=== PATIENT | female | born 1980 | race African-American/Black ===

== ENCOUNTER 2016-09-10 16:00 | Emergency (ER) | payer MEDICAID, OTHER ==
[~2016-09-10] VITALS: Ht 160 cm; Wt 72.6 kg
[~2016-09-10 16:00] MED LIST: INSU100I13 SQ; INSU100V31 SQ; LISI10TA2 PO; METO10TA81 PO; PANT20TA2 PO
[2016-09-10] MEDS ORDERED: IV NORMAL SALINE 1000ML BAG 1,000 ML IV SCH (17:49)
[2016-09-10] MEDS ORDERED: ONDANSETRON PF 4 MG/2 ML VIAL. IV ONE (18:00)
--- NOTE | 2016-09-10 18:02 | PHYS DOC ---
Past Medical History Past Medical History: Asthma, Diabetes-Type II, Hypertension, Other Additional Past Medical Histor: gastroperesis Past Surgical History: Cholecystectomy, , Tubal ligation Additional Past Surgical Histo: R eye, R foot Alcohol Use: None Drug Use: None Adult General Chief Complaint Chief Complaint: NAUSEA/VOMITING/DIARRHA HPI HPI Patient is a 36 year old female who presents with nausea, vomiting, and abdominal pain. Patient states that she has history of diabetic gastroparesis. Patient said symptoms for the past 2 weeks but has had worsening symptoms over the past few days. Patient states that she is from [place], [place] and is currently visiting her father in [place]. Patient states that she was seen in an emergency department and [place] 2 days ago and treated and released. Patient states that her symptoms started getting worse and she has not been able to tolerate her oral Reglan and Protonix currently. Patient denies any fevers. Patient denies any atypical symptoms from previous exacerbations. Patient's pain is in her upper abdomen and does not radiate. Review of Systems Review of Systems Constitutional: Denies fever or chills [] Eyes: Denies change in visual acuity, redness, or eye pain [] HENT: Denies nasal congestion or sore throat [] Respiratory: Denies cough or shortness of breath [] Cardiovascular: Denies chest pain or edema [] GI: Abdominal pain, nausea, vomiting [] : Denies dysuria or hematuria [] Musculoskeletal: Denies back pain or joint pain [] Integument: Denies rash or skin lesions [] Neurologic: Denies headache, focal weakness or sensory changes [] Current Medications Current Medications Current Medications Medications (Trade) Dose Ordered Sig/Zhao Start Time Stop Time Status Last Admin Dose Admin Hydromorphone HCl 1 mg 1 mg PRN Q15MIN PRN 09/10/16 18:00 09/10/16 20:56 DC 09/10/16 19:49 1 MG Ondansetron HCl (Zofran) 4 mg 1X ONCE 09/10/16 18:00 09/10/16 18:01 DC 09/10/16 18:20 4 MG Potassium Chloride (Klor-Con) 40 meq 1X ONCE 09/10/16 19:30 09/10/16 19:31 DC 09/10/16 19:50 40 MEQ Sodium Chloride (Iv Sodium Chloride 0.9% 1000ml Bag) 1,000 ml @ 1,000 mls/hr Q1H 09/10/16 17:49 09/10/16 18:48 DC 09/10/16 17:49 1,000 MLS/HR Allergies Allergies Allergies Coded Allergies Type Severity Reaction Last Updated Verified No Known Drug Allergies 06/14/15 No Physical Exam Physical Exam Constitutional: Alert, afebrile, appears in mild discomfort. [] HENT: Normocephalic, atraumatic, bilateral external ears normal, oropharynx moist, no oral exudates, nose normal. [] Eyes: PERRLA, EOMI, conjunctiva normal, no discharge. [] Neck: Normal range of motion, no tenderness, supple, no stridor. [] Cardiovascular:Heart rate regular rhythm, no murmur [] Lungs & Thorax: Bilateral breath sounds clear to auscultation [] Abdomen: Bowel sounds normal, soft, epigastric tenderness to palpation, mild guarding, no rebound tenderness, no masses, no pulsatile masses. [] Skin: Warm, dry, no erythema, no rash. [] Back: No tenderness, no CVA tenderness. [] Extremities: No tenderness, no cyanosis, no clubbing, ROM intact, no edema. [] Neurologic: Alert and oriented X 3, normal motor function, normal sensory function, no focal deficits noted. [] Current Patient Data Vital Signs Vital Signs Date Time Temp Pulse Resp B/P Pulse Ox O2 Delivery O2 Flow Rate FiO2 09/10/16 20:34 94 142/86 94 Room Air 09/10/16 19:49 20 09/10/16 17:30 98.2 98.2 Lab Values Laboratory Tests Test 09/10/16 18:00 09/10/16 18:13 09/10/16 18:15 09/10/16 19:31 Urine Color Yellow Urine Clarity Cloudy Urine pH 8.0 Urine Specific [place] 1.025 Urine Protein 30mg/dL (NEG-TRACE) Urine Glucose (UA) Negativemg/dL (NEG) Urine Ketones (Stick) 15mg/dL (NEG) Urine Blood Negative (NEG) Urine Nitrite Negative (NEG) Urine Bilirubin Negative (NEG) Urine Urobilinogen Dipstick 0.2mg/dL (0.2 mg/dL) Urine Leukocyte Esterase Trace (NEG) Urine RBC 0/HPF (0-2) Urine WBC Occ/HPF (0-4) Urine Squamous Epithelial Cells Mod/LPF Urine Bacteria Few/HPF (0-FEW) Urine Mucus Mod/LPF POC Urine HCG, Qualitative Hcg negative (Negative) Sodium Level 141mmol/L (136-145) Potassium Level 2.8mmol/L (3.5-5.1) *L Chloride Level 99mmol/L (98-107) Carbon Dioxide Level 36mmol/L (21-32) H Anion Gap 6 (6-14) Blood Urea Nitrogen 9mg/dL (7-20) Creatinine 1.0mg/dL (0.6-1.0) Estimated GFR (Cockcroft-Gault) 76.8 BUN/Creatinine Ratio 9 (6-20) Glucose Level 171mg/dL (70-99) H Calcium Level 9.8mg/dL (8.5-10.1) Total Bilirubin 0.5mg/dL (0.2-1.0) Aspartate Amino Transferase (AST) 16U/L (15-37) Alanine Aminotransferase (ALT) 25U/L (14-59) Alkaline Phosphatase 44U/L (46-116) L Total Protein 8.2g/dL (6.4-8.2) Albumin 4.4g/dL (3.4-5.0) Albumin/Globulin Ratio 1.2 (1.0-1.7) Lipase 149U/L (73-393) White Blood Count 8.5x10^3/uL (4.0-11.0) Red Blood Count 3.56x10^6/uL (3.50-5.40) Hemoglobin 11.1g/dL (12.0-15.5) L Hematocrit 33.3% (36.0-47.0) L Mean Corpuscular Volume 94fL (79-100) Mean Corpuscular Hemoglobin 31pg (25-35) Mean Corpuscular Hemoglobin Concent 33g/dL (31-37) Red Cell Distribution Width 12.9% (11.5-14.5) Platelet Count 139x10^3/uL (140-400) L Neutrophils (%) (Auto) 59% (31-73) Lymphocytes (%) (Auto) 30% (24-48) Monocytes (%) (Auto) 9% (0-9) Eosinophils (%) (Auto) 1% (0-3) Basophils (%) (Auto) 1% (0-3) Neutrophils # (Auto) 5.0x10^3uL (1.8-7.7) Lymphocytes # (Auto) 2.5x10^3/uL (1.0-4.8) Monocytes # (Auto) 0.8x10^3/uL (0.0-1.1) Eosinophils # (Auto) 0.1x10^3/uL (0.0-0.7) Basophils # (Auto) 0.1x10^3/uL (0.0-0.2) Laboratory Tests 09/10/16 19:31 Laboratory Tests 09/10/16 18:15 EKG EKG Not performed [] Radiology/Procedures Radiology/Procedures Two-view abdominal x-ray interpreted by me: Nonobstructive bowel gas pattern, no free air under the diaphragm [] Course & Med Decision Making Course & Med Decision Making Pertinent Labs and Imaging studies reviewed. (See chart for details) The patient was given IV fluids, Dilaudid, and Zofran for symptoms. Patient was found to have decreased potassium of 2.8 in the emergency department. Patient was given 40 mEq of oral potassium which she was able to tolerate without difficulty. The patient feels better at this time and would like to go home. Advised to continue on home medications help with symptoms with recommended follow-up in 2-3 days. Advised return emergency department for any worsening symptoms. Patient voiced understanding and in agreement with treatment plan. Dragon Disclaimer Dragon Disclaimer This electronic medical record was generated, in whole or in part, using a voice recognition dictation system. Departure Departure Impression: Primary Impression: Gastroparesis Additional Impression: Hypokalemia Disposition: HOME, SELF-CARE Condition: IMPROVED Referrals: NO PCP (PCP) Patient Instructions: Gastroparesis, Hypokalemia Additional Instructions: Follow-up with your primary doctor in 2-3 days. Return to the emergency department for any worsening symptoms. Problem Qualifiers MAX HERNANDEZ MD Sep 10, 2016 18:02
[2016-09-10 18:17] LABS: BILIRUBIN,URINE NEGATIVE (NEG); GLUCOSE,URINE NEGATIVE (NEG); NITRITE,URINE NEGATIVE (NEG); PROTEIN,URINE 30 mg/dL (NEG-TRACE); UROBILINOGEN,URINE 0.2 mg/dL (0.2 mg/dL)
[2016-09-10] MEDS: HYDROMORPHONE 2 MG/ML VIAL. IV/SQ PRN ×2 (18:21→19:49)
[2016-09-10 18:41] LABS: BACTERIA,URINE FEW /HPF (0-FEW); RBC,URINE 0 /HPF (0-2); SQUAMOUS EPITHELIAL CELL,UR MOD /LPF; WBC,URINE OCC /HPF (0-4)
[2016-09-10 18:53] LABS: ALBUMIN 4.4 g/dL (3.4-5.0); ALBUMIN/GLOBULIN RATIO 1.2 (1.0-1.7); CALCIUM 9.8 mg/dL (8.5-10.1); GFR 76.8; TOTAL BILIRUBIN 0.5 mg/dL (0.2-1.0); TOTAL PROTEIN 8.2 g/dL (6.4-8.2)
[2016-09-10 19:05] LABS: POTASSIUM 2.8 mmol/L (3.5-5.1)
[2016-09-10] MEDS ORDERED: POTASSIUM CHLORIDE 20 MEQ TABLET.ER. PO ONE (19:30)
[2016-09-10 19:36] LABS: BASO # 0.1 x10^3/uL (0.0-0.2); BASO % 1 % (0-3); EOS % 1 % (0-3); HEMATOCRIT 33.3 % (36.0-47.0); HEMOGLOBIN 11.1 g/dL (12.0-15.5); LYMPH # 2.5 x10^3/uL (1.0-4.8); LYMPH % 30 % (24-48); MEAN CORPUSCULAR HEMOGLOBIN 31 pg (25-35); MEAN CORPUSCULAR HGB CONC 33 g/dL (31-37); MEAN CORPUSCULAR VOLUME 94 fL (79-100); MONO % 9 % (0-9); NEUT % 59 % (31-73); PLATELET COUNT 139 x10^3/uL (140-400); RED BLOOD COUNT 3.56 x10^6/uL (3.50-5.40); RED CELL DISTRIBUTION WIDTH 12.9 % (11.5-14.5); WHITE BLOOD COUNT 8.5 x10^3/uL (4.0-11.0)
[2016-09-10 20:34] VITALS: BP 142/86
--- NOTE | 2016-09-11 08:19 | RAD ---
INDICATION: abdominal pain, vomiting COMPARISON: 09/09/2014 IMPRESSION: 3 views of abdomen obtained. Air scattered throughout large and small bowel are grossly nonobstructive pattern. Multiple calcifications are seen within the pelvis. Could be secondary to phleboliths given that the patient had calcifications in the region on prior.
[2016-09-11] MEDS ORDERED: HYDR-971 PO (15:07)
[2016-09-11] MEDS ORDERED: ONDA4TAB10 SL (15:07)
== END 2016-09-10 20:35 | disposition home or self-care (01) ==
LOC: ER 16:00
DX: K31.84 Gastroparesis (principal); E11.43 Type 2 diabetes mellitus with diabetic autonomic (poly)neuropathy; E87.6 Hypokalemia; J45.909 Unspecified asthma, uncomplicated; I10 Essential (primary) hypertension; Z90.49 Acquired absence of other specified parts of digestive tract; Z98.51 Tubal ligation status
CPT/HCPCS: 36415; 74020; 80053; 81001; 81025; 83690; 85027; 87086; 96361; 96374; 96375; 96376; 99285; J1170; J2405; J7030

== ENCOUNTER 2016-09-11 11:16 | Emergency (ER) | payer OTHER ==
[~2016-09-11] VITALS: Ht 160 cm; Wt 72.6 kg
[2016-09-11 11:40] VITALS: BP 179/99
[2016-09-11] MEDS ORDERED: IV NORMAL SALINE 1000ML BAG 1,000 ML IV SCH (11:57)
[2016-09-11] MEDS ORDERED: FAMOTIDINE 20 MG/2 ML VIAL IVP ONE (12:00)
[2016-09-11] MEDS ORDERED: ONDANSETRON PF 4 MG/2 ML VIAL. IV ONE (12:00)
[2016-09-11] MEDS ORDERED: HYDROMORPHONE 2 MG/ML VIAL. IV/SQ PRN (12:00)
[2016-09-11 12:53] LABS: CALCIUM 10.1 mg/dL (8.5-10.1); GFR 76.8; POTASSIUM 3.3 mmol/L (3.5-5.1)
[2016-09-11 12:55] LABS: BASO # 0.1 x10^3/uL (0.0-0.2); BASO % 1 % (0-3); EOS % 1 % (0-3); HEMATOCRIT 35.7 % (36.0-47.0); HEMOGLOBIN 12.2 g/dL (12.0-15.5); LYMPH # 2.4 x10^3/uL (1.0-4.8); LYMPH % 22 % (24-48); MEAN CORPUSCULAR HEMOGLOBIN 31 pg (25-35); MEAN CORPUSCULAR HGB CONC 34 g/dL (31-37); MEAN CORPUSCULAR VOLUME 92 fL (79-100); MONO % 7 % (0-9); NEUT % 69 % (31-73); PLATELET COUNT 157 x10^3/uL (140-400); RED BLOOD COUNT 3.89 x10^6/uL (3.50-5.40); RED CELL DISTRIBUTION WIDTH 13.3 % (11.5-14.5); WHITE BLOOD COUNT 10.6 x10^3/uL (4.0-11.0)
[2016-09-11 12:58] LABS: ALBUMIN 4.3 g/dL (3.4-5.0); ALBUMIN/GLOBULIN RATIO 1.3 (1.0-1.7); TOTAL BILIRUBIN 0.5 mg/dL (0.2-1.0); TOTAL PROTEIN 7.6 g/dL (6.4-8.2)
--- NOTE | 2016-09-11 13:10 | RAD ---
INDICATION: n/v, diffuse pain, hx gastroparesis COMPARISON: 1 day prior IMPRESSION: Single frontal view of abdomen obtained. Air scattered throughout large and small bowel are grossly nonobstructive pattern. Multiple calcifications are seen within the pelvis. Could be secondary to phleboliths since they were present on prior exams but would be difficult to evaluate for a distal ureter stone in the presence of these findings. 2 mm calcification projecting over left renal shadow. Could be bowel content or renal stone.
--- NOTE | 2016-09-11 13:19 | PHYS DOC ---
Past Medical History Past Medical History: Asthma, Diabetes-Type II, Hypertension, Other Additional Past Medical Histor: gastroperesis Past Surgical History: Cholecystectomy, , Tubal ligation Additional Past Surgical Histo: R eye, R foot Additional Information: nonsmoker Alcohol Use: None Drug Use: None Adult General Chief Complaint Chief Complaint: NAUSEA/VOMITING/DIARRHA HPI HPI Patient is a 36 year old diabetic female with gastroparesis who presents with nausea, vomiting, and diffuse abdominal pain for 2 weeks. She estimates 3 episodes of emesis in the last 24 hours. She denies fever or diarrhea. She was seen here yesterday for the same complaints. She was given medications in the emergency department, felt better, and was discharged home. She was treated for hypokalemia in the emergency department. She takes Protonix and Reglan at home for her gastroparesis. She has been unable to take these medications today due to her continued nausea and vomiting. She was apparently seen at an ER in [place], [place] where she lives a few days ago as well. She is currently in [place] visiting her father. Review of Systems Review of Systems Constitutional: Denies fever or chills. [] Eyes: Denies change in visual acuity, redness, or eye pain. [] HENT: Denies ear pain, nasal congestion or sore throat. [] Respiratory: Denies cough or shortness of breath. [] Cardiovascular: Denies chest pain, palpitations or edema. [] GI: Denies bloody stools or diarrhea. Reports diffuse abdominal pain, nausea, and vomiting. : Denies dysuria, hematuria or urinary frequency. [] Musculoskeletal: Denies back pain or joint pain. [] Integument: Denies rash or skin lesions. [] Neurologic: Denies headache, focal weakness or sensory changes. [] Endocrine: Denies polyuria or polydipsia. [] Psych: Denies anxiety or depression. [] All systems reviewed and negative unless otherwise stated in the HPI. Current Medications Current Medications Current Medications Medications (Trade) Dose Ordered Sig/Zhao Start Time Stop Time Status Last Admin Dose Admin Famotidine (Pepcid) 20 mg 1X ONCE 09/11/16 12:00 09/11/16 12:02 DC 09/11/16 13:00 20 MG Hydromorphone HCl (Dilaudid) 0.5 mg 1X ONCE 09/11/16 14:15 09/11/16 14:16 DC 09/11/16 14:34 0.5 MG Hydromorphone HCl 1 mg 1 mg PRN Q15MIN PRN 09/11/16 12:00 09/12/16 11:59 09/11/16 13:01 1 MG Ondansetron HCl (Zofran) 4 mg 1X ONCE 09/11/16 12:00 09/11/16 12:02 DC 09/11/16 13:01 4 MG Sodium Chloride (Iv Sodium Chloride 0.9% 1000ml Bag) 1,000 ml @ 1,000 mls/hr Q1H 09/11/16 11:57 09/11/16 12:56 DC 09/11/16 13:00 1,000 MLS/HR Allergies Allergies Allergies Coded Allergies Type Severity Reaction Last Updated Verified No Known Drug Allergies 06/14/15 No Physical Exam Physical Exam Constitutional: Well developed, well nourished, no acute distress, non-toxic appearance. [] HENT: Normocephalic, atraumatic, oropharynx moist. [] Eyes: PERRLA, EOMI, conjunctiva normal, no discharge. [] Neck: Normal range of motion, no tenderness, supple, no stridor. [] Cardiovascular: Heart rate regular rhythm, no murmur. [] Lungs & Thorax: Bilateral breath sounds clear to auscultation without wheezes, rales, or rhonchi. [] Abdomen: Bowel sounds normal, soft, diffuse tenderness, no masses, no pulsatile masses. [] Skin: Warm, dry, no erythema, no rash. [] Back: No midline tenderness, no CVA tenderness. [] Extremities: No tenderness, ROM intact, no edema. Distal pulses equal bilaterally. [] Neurologic: Alert and oriented X 3, normal motor function, normal sensory function, no focal deficits noted. [] Psychologic: Affect normal, judgement normal, mood normal. [] Current Patient Data Vital Signs Vital Signs Date Time Temp Pulse Resp B/P Pulse Ox O2 Delivery O2 Flow Rate FiO2 09/11/16 14:34 20 99 Room Air 09/11/16 11:40 98.5 85 179/99 98.5 Lab Values Laboratory Tests Test 09/11/16 12:30 09/11/16 13:55 White Blood Count 10.6x10^3/uL (4.0-11.0) Red Blood Count 3.89x10^6/uL (3.50-5.40) Hemoglobin 12.2g/dL (12.0-15.5) Hematocrit 35.7% (36.0-47.0) L Mean Corpuscular Volume 92fL (79-100) Mean Corpuscular Hemoglobin 31pg (25-35) Mean Corpuscular Hemoglobin Concent 34g/dL (31-37) Red Cell Distribution Width 13.3% (11.5-14.5) Platelet Count 157x10^3/uL (140-400) Neutrophils (%) (Auto) 69% (31-73) Lymphocytes (%) (Auto) 22% (24-48) L Monocytes (%) (Auto) 7% (0-9) Eosinophils (%) (Auto) 1% (0-3) Basophils (%) (Auto) 1% (0-3) Neutrophils # (Auto) 7.4x10^3uL (1.8-7.7) Lymphocytes # (Auto) 2.4x10^3/uL (1.0-4.8) Monocytes # (Auto) 0.7x10^3/uL (0.0-1.1) Eosinophils # (Auto) 0.1x10^3/uL (0.0-0.7) Basophils # (Auto) 0.1x10^3/uL (0.0-0.2) Sodium Level 142mmol/L (136-145) Potassium Level 3.3mmol/L (3.5-5.1) L Chloride Level 99mmol/L (98-107) Carbon Dioxide Level 32mmol/L (21-32) Anion Gap 11 (6-14) Blood Urea Nitrogen 8mg/dL (7-20) Creatinine 1.0mg/dL (0.6-1.0) Estimated GFR (Cockcroft-Gault) 76.8 BUN/Creatinine Ratio 8 (6-20) Glucose Level 215mg/dL (70-99) H Calcium Level 10.1mg/dL (8.5-10.1) Total Bilirubin 0.5mg/dL (0.2-1.0) Aspartate Amino Transferase (AST) 19U/L (15-37) Alanine Aminotransferase (ALT) 24U/L (14-59) Alkaline Phosphatase 43U/L (46-116) L Total Protein 7.6g/dL (6.4-8.2) Albumin 4.3g/dL (3.4-5.0) Albumin/Globulin Ratio 1.3 (1.0-1.7) Lipase 152U/L (73-393) Urine Collection Type Unknown Urine Color Yellow Urine Clarity Turbid Urine pH 8.0 Urine Specific [place] 1.025 Urine Protein 30mg/dL (NEG-TRACE) Urine Glucose (UA) Negativemg/dL (NEG) Urine Ketones (Stick) 15mg/dL (NEG) Urine Blood Negative (NEG) Urine Nitrite Negative (NEG) Urine Bilirubin Negative (NEG) Urine Urobilinogen Dipstick 0.2mg/dL (0.2 mg/dL) Urine Leukocyte Esterase Trace (NEG) Urine RBC 0/HPF (0-2) Urine WBC 0/HPF (0-4) Urine Squamous Epithelial Cells Many/LPF Urine Bacteria Moderate/HPF (0-FEW) Urine Mucus Mod/LPF Laboratory Tests 09/11/16 12:30 Laboratory Tests 09/11/16 12:30 EKG EKG [] Radiology/Procedures Radiology/Procedures REASON: n/v, diffuse pain, hx gastroparesis PROCEDURE: KUB INDICATION: n/v, diffuse pain, hx gastroparesis COMPARISON: 1 day prior IMPRESSION: Single frontal view of abdomen obtained. Air scattered throughout large and small bowel are grossly nonobstructive pattern. Multiple calcifications are seen within the pelvis. Could be secondary to phleboliths since they were present on prior exams but would be difficult to evaluate for a distal ureter stone in the presence of these findings. 2 mm calcification projecting over left renal shadow. Could be bowel content or renal stone. Course & Med Decision Making Course & Med Decision Making Pertinent Labs and Imaging studies reviewed. (See chart for details) The patient is a 36 year old diabetic female with history of gastroparesis who presents with abdominal pain, nausea, and vomiting. On exam, her abdomen is soft and nonsurgical with diffuse tenderness. There are no significant laboratory abnormalities. Her potassium has increased after treatment for hypokalemia yesterday. Her pain, nausea, and vomiting improved with IV Zofran, Pepcid, Dilaudid, and fluids in the emergency department. The patient is requesting to go home. She is discharged home with prescriptions for Zofran and [place]. She is instructed to continue her home medications and use the Zofran if she is unable to tolerate her home medications. Return precautions were discussed. She verbalizes understanding and agrees with plan for discharge in stable condition. Dragon Disclaimer Dragon Disclaimer This electronic medical record was generated, in whole or in part, using a voice recognition dictation system. Departure Departure Impression: Primary Impression: Abdominal pain Additional Impression: Nausea & vomiting Disposition: 01 HOME, SELF-CARE Condition: IMPROVED Referrals: NO PCP (PCP) Patient Instructions: Abdominal Pain, [id number], Gastroparesis, Nausea and Vomiting, [id number] Additional Instructions: There were no concerning abnormalities on your labs or xray today. Please continue taking your home nausea medications. You may take the prescribed Zofran if your nausea continues. Please take the prescribed pain medication as directed. Do not drive or operate heavy machinery while taking pain medication. Please follow-up with your primary care provider within the next week. Return to emergency department if you have any new or concerning symptoms. Scripts Hydrocodone/Apap 5-325 ([place] 5-325 Tablet)1 Each Tablet1 Tab PO PRN Q6HRS PRN PAIN #10 TAB Prov:JAVIER RODRIGUEZ 09/11/16 Ondansetron (Zofran Odt)4 Mg Tab.rapdis1 Tab SL Q8HRS #10 TAB Prov:JAVIER RODRIGUEZ 09/11/16 Problem Qualifiers Primary Impression: Abdominal pain Abdominal location: generalized Qualified Code: R10.84 - Generalized abdominal pain Additional Impression: Nausea & vomiting Vomiting type: unspecified Vomiting Intractability: non-intractable Qualified Code: R11.2 - Nausea with vomiting, unspecified JAVIER RODRIGUEZ Sep 11, 2016 13:19
[2016-09-11] MEDS ORDERED: HYDROMORPHONE 2 MG/ML VIAL. IV ONE (14:15)
[2016-09-11 14:27] LABS: BILIRUBIN,URINE NEGATIVE (NEG); GLUCOSE,URINE NEGATIVE (NEG); NITRITE,URINE NEGATIVE (NEG); PROTEIN,URINE 30 mg/dL (NEG-TRACE); UROBILINOGEN,URINE 0.2 mg/dL (0.2 mg/dL)
[2016-09-11 14:39] LABS: BACTERIA,URINE MODERATE /HPF (0-FEW); RBC,URINE 0 /HPF (0-2); SQUAMOUS EPITHELIAL CELL,UR MANY /LPF; WBC,URINE 0 /HPF (0-4)
[2016-09-11] MEDS ORDERED: ONDA4TAB10 SL (15:07)
[2016-09-11] MEDS ORDERED: HYDR-971 PO (15:07)
== END 2016-09-11 15:44 | disposition home or self-care (01) ==
LOC: ER 11:16
DX: R10.84 Generalized abdominal pain (principal); R11.2 Nausea with vomiting, unspecified; J45.909 Unspecified asthma, uncomplicated; I10 Essential (primary) hypertension; Z90.49 Acquired absence of other specified parts of digestive tract; Z98.51 Tubal ligation status; E11.43 Type 2 diabetes mellitus with diabetic autonomic (poly)neuropathy; K31.84 Gastroparesis
CPT/HCPCS: 36415; 74000; 80053; 81001; 83690; 85027; 87086; 96361; 96374; 96375; 96376; 99285; J1170; J2405; J7030; S0028